=== PATIENT | female | born 1970 | race Two or more races ===

== ENCOUNTER 2017-03-22 13:19 | Emergency (ER) | payer SELFPAY ==
--- NOTE | ~2017-03-22 | ER ---
PATIENT'S NAME: STACEY MARQUEZ [facility] AGE: 46 Y [address] ROOM: [place] [address] LOCATION: ED ADMIT DATE: 03/22/2017 ER/Outpatient Report DISCHARGE DATE: 03/22/2017 FAMILY PHYSICIAN: , Unknown ATTENDING PHYSICIAN: Ivelisse López Time of Arrival: 1319 hours. Time Seen: 1340 hours. IDENTIFICATION: A 46-year-old female. CHIEF COMPLAINT: Back pain. HISTORY OF PRESENT ILLNESS: The patient is a 46-year-old female from [place], who does not speak [place]o. 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 The patient fell 2 weeks ago. She slipped while at [employer] on a wet floor and landed on her back. She complains of low back pain, also pain in her right trapezius area. She did not hit her head; no loss of consciousness; no neck pain; no numbness, tingling, or weakness. She is not tender to palpation on her back. She says she worries that something is "inside." She denies any other problems or concerns. ALLERGIES: NO KNOWN DRUG ALLERGIES. CURRENT MEDICATIONS: Motrin p.r.n. MEDICAL PROBLEMS: Denies. PRIOR HOSPITALIZATIONS OR SURGERIES: She has had a tubal ligation. SOCIAL HISTORY: The patient lives in [place]. Tobacco use, denies. Alcohol use, denies. Drug use, denies. She does not have a local physician. REVIEW OF SYSTEMS: All systems reviewed and negative other than what is noted in the HPI. FAMILY HISTORY: PATIENT'S NAME: STACEY MARQUEZ [facility] AGE: 46 Y [address] ROOM: [place] [address] LOCATION: ED ADMIT DATE: 03/22/2017 ER/Outpatient Report DISCHARGE DATE: 03/22/2017 FAMILY PHYSICIAN: , Unknown ATTENDING PHYSICIAN: Ivelisse López No pertinent family history. PHYSICAL EXAMINATION: VITAL SIGNS: Height 5 feet 6 inches, weight 98.7 kg. Blood pressure 164/107, pulse 85, respirations 16, temperature 98.5, and saturations 95% on room air. GENERAL: A 46-year-old female, in no acute distress. HEENT: Head: Normocephalic, atraumatic. Ears: TMs translucent, both ears. Eyes: Pupils equal and reactive to light and accommodation. Extraocular movements intact. Conjunctivae clear. Nose: Mucosa pink. No lesions. Mouth: No lesions. Pharynx benign. NECK: Supple. No lymphadenopathy. No tenderness to palpation of her cervical spine. LUNGS: Clear to auscultation. Breath sounds are equal. No rhonchi, wheezes, or rales. HEART: Regular rate and rhythm. No murmur, rub, or gallop. MUSCULOSKELETAL: No chest wall tenderness. No tenderness to palpation of her thoracic spine. No tenderness to palpation of her upper back. No tenderness to palpation of her lumbar spine, and no paraspinal muscle tenderness. NEURO: She has full range of motion. Ambulation is normal. Gait is normal. ABDOMEN: Protuberant bowel sounds present. Soft, nondistended. Diffusely tender to moderate palpation. No rebound or guarding. No CVA tenderness. SKIN: [place], warm, and dry. No lesions or rashes noted. NEURO: The patient is alert and oriented x4. Cranial nerves 2 through 12 grossly intact. Motor strength 5/5 throughout. Sensation is intact to light touch. No lower extremity edema. LABORATORY DATA: Hemoglobin 13.7, hematocrit 40.7, platelets 342, white count 7.1 with a normal differential. Sodium 142, potassium 3.8, chloride 108, CO2 23, BUN 15, creatinine 0.9, and blood sugar 113. Liver enzymes normal. Amylase 62, lipase 133. UA: Specific gravity 1.025, pH 5, leukocytes positive, nitrites negative, 20-50 white cells, 0-2 red cells, 2-5 epithelial cells, moderate bacteria. Lumbar spine x-ray: Mild degenerative changes, possible mild scoliosis to the right per Radiology. Three-view abdomen: No acute process. Pending Radiology over-read. IMPRESSION: 1. Right low back pain. The patient was given Toradol 60 mg IM here in the emergency room. 2. Urinary tract infection. Bactrim DS b.i.d. for 3 days. Push fluids and rest. Tylenol or ibuprofen. Ice or heat as needed for back pain. 3. Elevated blood pressure. Follow up with physician of choice next week. The patient understands and agrees. The discharge instructions were reviewed with the [employer] sales. PATIENT'S NAME: AURELIO GONZALES [facility] AGE: 46 Y [address] ROOM: [place] [address] LOCATION: [facility] ADMIT DATE: 03/22/2017 ER/Outpatient Report DISCHARGE DATE: 03/22/2017 FAMILY PHYSICIAN: Physician, Unknown ATTENDING PHYSICIAN: Ivelisse López MD SALMA STAFFORD/modl /[id number] d: 03/22/172056 t: 03/26/1742, OUTPATIENT REPORT
[2017-03-22 14:05] LABS: BASOPHIL % 0.4 %; EOSINOPHIL # 0.1 K/uL (0.0-0.5); EOSINOPHIL % 1.3 %; HEMATOCRIT 40.7 % (33.0-46.0); HEMOGLOBIN 13.7 g/dL (10.0-15.0); IMMATURE GRANULOCYTE % 0.3 %; LYMPHOCYTE # 2.7 K/uL (0.8-4.0); LYMPHOCYTE % 38.3 %; MCH 29.8 pg (27.0-34.0); MCHC 33.7 gm/dL (32.0-36.5); MCV 88.7 fl (83.0-98.0); MONOCYTE # 0.4 K/uL (0.0-1.0); MONOCYTE % 4.9 %; MPV 10.5 fl (9.4-12.4); NEUTROPHIL # (ANC) 3.9 K/uL (1.8-7.8); NEUTROPHIL % 54.8 %; NRBC % 0 /100WBC (0-0.00); PLATELET COUNT 342 K/uL (150-450); RBC 4.59 M/uL (3.50-5.50); RDW-CV 12.8 % (11.9-14.6); WBC 7.1 K/uL (4.0-11.0)
[2017-03-22 14:13] LABS: BILIRUBIN URINE NEGATIVE (NEGATIVE); BLOOD URINE 10 /UL (NEGATIVE); COLOR URINE YELLOW (YELLOW); GLUCOSE URINE NEGATIVE (NEGATIVE); KETONE URINE NEGATIVE (NEGATIVE); LEUKOCYTES URINE 500 /UL (NEGATIVE); NITRITE URINE NEGATIVE (NEGATIVE); PROTEIN URINE NEGATIVE (NEGATIVE); SPEC GRAVITY URINE 1.025 (1.003-1.035); UROBILINOGEN URINE NORMAL (NORMAL)
[2017-03-22 14:19] LABS: TURBIDITY URINE CLEAR (CLEAR)
[2017-03-22 14:23] LABS: RBC URINE 0-2 #/HPF (NEGATIVE); WBC URINE 20-50 #/HPF (NEGATIVE)
[2017-03-22 14:24] LABS: BACTERIA URINE MODERATE (NEGATIVE)
[2017-03-22 14:24] LABS: ALBUMIN 3.5 gm/dL (3.5-5.0); ALK PHOS 124 IU/L (33-138); ALT 21 IU/L (12-78); ANION GAP 14.8 (10.0-19.0); AST 16 IU/L (10-40); BLOOD UREA NITROGEN 15 mg/dL (6-24); CALCIUM 8.5 mg/dL (8.5-10.5); CHLORIDE 108 mMol/L (96-110); CO2 23 mMol/L (22-32); CREATININE 0.9 mg/dL (0.5-1.1); ESTIMATED GFR (MDRD EQUATION) > 60; POTASSIUM 3.8 mMol/L (3.7-5.1); SODIUM 142 mMol/L (135-145); TOTAL BILIRUBIN 0.2 mg/dL (0.0-1.5); TOTAL PROTEIN 7.7 g/dL (6.0-8.4)
== END 2017-03-22 15:24 | disposition disaster alternative care site (69) ==
LOC: GMED 13:19
PROVIDERS: Family Medicine
DX: N39.0 Urinary tract infection, site not specified (principal); M54.5 Low back pain; R03.0 Elevated blood-pressure reading, without diagnosis of hypertension; Z98.51 Tubal ligation status
CPT/HCPCS: J1885